=== PATIENT | female | born 1940 | race Caucasian/White ===

== ENCOUNTER 2018-07-01 13:08 | Emergency (ER) | payer OTHER ==
[2018-07-01 13:31] VITALS: BP 167/90
[2018-07-01] MEDS ORDERED: ACETAMINOPHEN 325 MG TAB PO ONE (15:15)
== END 2018-07-01 16:23 | disposition home or self-care (01) ==
LOC: ER 13:13
DX: S82.034A Nondisplaced transverse fracture of right patella, initial encounter for closed fracture (principal); S60.221A Contusion of right hand, initial encounter; S60.212A Contusion of left wrist, initial encounter; S09.90XA Unspecified injury of head, initial encounter; I10 Essential (primary) hypertension; E78.5 Hyperlipidemia, unspecified; W01.0XXA Fall on same level from slipping, tripping and stumbling without subsequent striking against object, initial encounter; Y93.89 Activity, other specified; Y99.8 Other external cause status; Y92.89 Other specified places as the place of occurrence of the external cause
CPT/HCPCS: 70450; 73110; 73130; 73562